=== PATIENT | female | born 1985 | race American Indian/Alaskan Native ===

== ENCOUNTER 2019-01-31 20:32 | Emergency (ER) | payer SELFPAY ==
[2019-02-01] MEDS ORDERED: FUL-GLO OP ONE (00:17)
[2019-02-01] MEDS ORDERED: TETRACAINE 0.5% OS ONE (00:18)
--- NOTE | 2019-02-01 00:20 | Emergency Department Report ---
ED Eye Problem HPI - General Chief complaint: Eye Problems Stated complaint: LEFT EYE PAIN Time Seen by Provider: 02/01/19 00:10 Source: patient Mode of arrival: Ambulatory Limitations: No Limitations - History of Present Illness Initial comments: Pt is a 33 yo female who presents to the ED with c/o left eye pain that began earlier today. She states that she scratched herself with a cardboard box at work. She denies anything getting stuck in the eye but just felt the sensation of the cardboard box scratch the eye. She states she has had clear watery drainage. she does not wear eye contacts. she does wear glasses. PMHx of HTN. denies any allergies to meds. - Related Data Previous Rx's Medication Instructions Recorded Last Taken Type Erythromycin [Erythromycin Ophth 0.5 inch OS QID 5 Days #1 tube 02/01/19 Unknown Rx Oint] ED Review of Systems ROS: Stated complaint: LEFT EYE PAIN Other details as noted in HPI Comment: All other systems reviewed and negative ED Past Medical Hx - Past Medical History Previous Medical History?: Yes Hx Hypertension: Yes - Surgical History Past Surgical History?: Yes Additional Surgical History: , Tubal Ligation - Social History Smoking Status: Never Smoker Substance Use Type: None - Medications Home Medications: Home Medications Medication Instructions Recorded Confirmed Last Taken Type Erythromycin [Erythromycin Ophth 0.5 inch OS QID 5 Days #1 tube 02/01/19 Unknown Rx Oint] ED Physical Exam - General Limitations: No Limitations General appearance: alert, in no apparent distress - Head Head exam: Present: atraumatic, normocephalic - Eye Eye exam: Present: PERRL, EOMI, conjunctival injection (left ), other (clear watery drainage left eye, no visualized foreign body, eye stained with fluorscein and small corneal abrasion visualized on the left eye at the 11 oclock position). Absent: periorbital swelling, periorbital tenderness - ENT ENT exam: Present: mucous membranes moist - Neurological Exam Neurological exam: Present: alert, oriented X3 - Psychiatric Psychiatric exam: Present: normal affect, normal mood - Skin Skin exam: Present: warm, dry, intact ED Course Vital Signs 01/31/19 02/01/19 20:38 01:14 Temperature 98.2 F 98.3 F Pulse Rate 96 H 88 Respiratory 18 18 Rate Blood Pressure 120/82 Blood Pressure 128/74 [Right] O2 Sat by Pulse 96 98 Oximetry ED Medical Decision Making - Medical Decision Making Pt is a 33 yo female who presents to the ED with c/o left eye pain that began earlier today. She states that she scratched herself with a cardboard box at work. She denies anything getting stuck in the eye but just felt the sensation of the cardboard box scratch the eye. She states she has had clear watery drainage. she does not wear eye contacts. she does wear glasses. PMHx of HTN. denies any allergies to meds. on exam clear watery drainage left eye, left conjunctival injection, no visualized foreign body, eye stained with fluorscein and small corneal abrasion visualized on the left eye at the 11 oclock position. pt given erythromycin ointment. discussed to please use ointment as prescribed. follow up with a eye doctor in the next 2-3 days. return to the emergency room for any new or worsening symptoms. Critical care attestation.: If time is entered above; I have spent that time in minutes in the direct care of this critically ill patient, excluding procedure time. ED Disposition Clinical Impression: Corneal abrasion Qualifiers: Encounter type: initial encounter Laterality: left Qualified Code(s): S05.02XA - Injury of conjunctiva and corneal abrasion without foreign body, left eye, initial encounter Disposition: TO HOME OR SELFCARE Is pt being admited?: No Does the pt Need Aspirin: No Condition: Stable Instructions: Corneal Abrasion (ED) Additional Instructions: please use ointment as prescribed. follow up with a eye doctor in the next 2-3 days. return to the emergency room for any new or worsening symptoms. Prescriptions: Erythromycin [Erythromycin Ophth Oint] 0.5 inch OS QID 5 Days #1 tube Referrals: PRIMARY CARE, [Primary Care Provider] - 2-3 Days AP QUINTANILLA MD [Staff Physician] - 2-3 Days NATHAN ZHOU MD [Staff Physician] - 2-3 Days Time of Disposition: 00:50 Print Language: HUNGARIAN
[2019-02-01 01:16] VITALS: BP 128/74
== END 2019-02-01 01:14 | disposition home or self-care (01) ==
LOC: ED 20:32
DX: S05.02XA Injury of conjunctiva and corneal abrasion without foreign body, left eye, initial encounter (principal); I10 Essential (primary) hypertension; Z79.899 Other long term (current) drug therapy; Z98.51 Tubal ligation status; W22.09XA Striking against other stationary object, initial encounter; Y93.89 Activity, other specified; Y92.69 Other specified industrial and construction area as the place of occurrence of the external cause; Y99.8 Other external cause status
CPT/HCPCS: 99283

== ENCOUNTER 2020-07-02 20:47 | Emergency (ER) | payer SELFPAY ==
[2020-07-02 23:38] LABS: Bilirubin,Urine NEG (Negative); Blood,Urine SM (Negative); Color,Urine Yellow (Yellow); Mucus,Urine 2+ /HPF; Protein,Urine <15 mg/dL mg/dL (Negative)
[2020-07-02 23:40] LABS: HCG Qualitative,Urine Negative (Negative)
[2020-07-03] MEDS ORDERED: ONDANSETRON 4 MG ODT TAB PO ONE (00:25)
[2020-07-03] MEDS ORDERED: LIDOCAINE-MPF (1%) 10 MG/1 ML VIAL 5 ML INFILTRATI ONE (00:25)
[2020-07-03] MEDS ORDERED: metroNIDAZOLE 500 MG TAB PO ONE (00:25)
--- NOTE | 2020-07-03 00:53 | Emergency Department Report ---
ED Female HPI - General Chief complaint: Urogenital-Female Stated complaint: VAG DISCHARGE Source: patient Mode of arrival: Ambulatory Limitations: No Limitations - History of Present Illness Initial comments: Patient is a A0 35-year-old -[place] female with no past medical history who presents to the ED with complaint of acute onset persistent vaginal discharge which she describes as greenish-yellow with malodorous smell for the last 5 days. Patient states that the discharge is persistent and causes her to wet undergarments. Patient denies dysuria, urinary frequency and urgency, vaginal bleeding, vaginal pain, abdominal pain, nausea, vomiting, fever, chills, dyspareunia, back pain, chest pain or shortness of breath. MD Complaint: vaginal discharge -: Sudden, days(s) (5) Location: other (vaginal) Radiation: non-radiating Severity: moderate Quality: dull Consistency: constant Improves with: none Worsens with: none Are you Now?: Yes Last Menstrual Period: 06/19/20 EDC: 03/26/21 Associated Symptoms: denies other symptoms, vaginal discharge. denies: vaginal bleeding, abdominal pain, nausea/vomiting, fever/chills, headaches, loss of appetite, dysuria, hematuria, rash, seizure, shortness of breath, syncope, weakness - Related Data Sexually active: Yes : 4 Para: 4 A: 0 Previous Rx's Medication Instructions Recorded Last Taken Type Fluconazole (Nf) [Diflucan TAB] 150 mg PO ONCE #1 tablet 07/03/20 Unknown Rx cephALEXin [Keflex] 500 mg PO Q8HR #30 cap 07/03/20 Unknown Rx metroNIDAZOLE [Flagyl] 500 mg PO Q12HR #14 tab 07/03/20 Unknown Rx Allergies Allergy/AdvReac Type Severity Reaction Status Date / Time No Known Allergies Allergy Unverified 07/02/20 21:05 ED Review of Systems ROS: Stated complaint: VAG DISCHARGE Other details as noted in HPI Constitutional: denies: chills, fever Eyes: denies: eye pain, eye discharge, vision change ENT: denies: ear pain, throat pain Respiratory: denies: cough, shortness of breath, wheezing Cardiovascular: denies: chest pain, palpitations Endocrine: no symptoms reported Gastrointestinal: denies: abdominal pain, nausea, diarrhea Genitourinary: urgency, frequency, discharge. denies: dysuria, abnormal menses, dyspareunia Musculoskeletal: denies: back pain, joint swelling, arthralgia Skin: denies: rash, lesions Neurological: denies: headache, weakness, paresthesias Psychiatric: denies: anxiety, depression Hematological/Lymphatic: denies: easy bleeding, easy bruising ED Past Medical Hx - Past Medical History Previous Medical History?: No - Surgical History Past Surgical History?: No - Medications Home Medications: Home Medications Medication Instructions Recorded Confirmed Last Taken Type Fluconazole (Nf) [Diflucan TAB] 150 mg PO ONCE #1 tablet 07/03/20 Unknown Rx cephALEXin [Keflex] 500 mg PO Q8HR #30 cap 07/03/20 Unknown Rx metroNIDAZOLE [Flagyl] 500 mg PO Q12HR #14 tab 07/03/20 Unknown Rx ED Physical Exam - General Limitations: No Limitations General appearance: alert, in no apparent distress - Head Head exam: Present: atraumatic, normocephalic, normal inspection - Eye Eye exam: Present: normal appearance, PERRL, EOMI Pupils: Present: normal accommodation - ENT ENT exam: Present: normal exam, normal orophraynx, mucous membranes moist, TM's normal bilaterally, normal external ear exam - Neck Neck exam: Present: normal inspection, full ROM - Respiratory Respiratory exam: Present: normal lung sounds bilaterally. Absent: respiratory distress, wheezes, rales, rhonchi, chest wall tenderness, accessory muscle use, decreased breath sounds, prolonged expiratory - Cardiovascular Cardiovascular Exam: Present: regular rate, normal rhythm, normal heart sounds. Absent: systolic murmur, diastolic murmur, rubs, gallop - GI/Abdominal GI/Abdominal exam: Present: soft, normal bowel sounds. Absent: tenderness, guarding, rebound, hyperactive bowel sounds, hypoactive bowel sounds, organomegaly - Bi-manual exam: Present: other (Pelvic exam deferred, patient preferred self- swabing) - Extremities Exam Extremities exam: Present: normal inspection, full ROM, normal capillary refill. Absent: tenderness, pedal edema, joint swelling - Back Exam Back exam: Present: normal inspection, full ROM. Absent: tenderness, CVA tenderness (R), CVA tenderness (L), muscle spasm, paraspinal tenderness, vertebral tenderness - Neurological Exam Neurological exam: Present: alert, oriented X3, CN II-XII intact, normal gait, reflexes normal - Psychiatric Psychiatric exam: Present: normal affect, normal mood - Skin Skin exam: Present: warm, dry, intact, normal color. Absent: rash ED Course Vital Signs 07/02/20 07/03/20 21:03 01:06 Temperature 98.1 F 98.1 F Pulse Rate 89 82 Respiratory 19 18 Rate Blood Pressure 123/79 Blood Pressure 120/82 [Left] O2 Sat by Pulse 96 98 Oximetry ED Medical Decision Making - Medical Decision Making This is a A0 35-year-old -[place] female with no past medical history who presents to the ED with complaint of acute onset persistent vaginal discharge which she describes as greenish-yellow with malodorous smell for the last 5 days. Patient states that the discharge is persistent and causes her to wet undergarments. In the ED, patient is alert and oriented x3 and is not in distress. Urinalysis showed significant urinary tract infection. Wet prep test was positive for Gardnerella vaginalis and trichomonas vaginalis. Patient was treated in the ED for trichomonas vaginalis with Flagyl and also treated for urinary tract infection with Rocephin 1 g intramuscular injection for UTI. Patient was therefore discharged home on antibiotics for bacterial vaginosis and UTI and was advised to follow-up with her [employer] physician in 5 to 7 days for reevaluation. Patient was also advised to ensure that the sexual partner also gets treated for the same at the health department. Patient was advised return to the ED immediately if symptoms get worse. - Differential Diagnosis STD; UTI; ; PID Critical care attestation.: If time is entered above; I have spent that time in minutes in the direct care of this critically ill patient, excluding procedure time. ED Disposition Clinical Impression: Acute urinary tract infection, Trichomonas vaginalis (TV) infection, Bacterial vaginosis Disposition: DC-01 TO HOME OR SELFCARE Is pt being admited?: No Does the pt Need Aspirin: No Condition: Stable Instructions: Urinary Tract Infection, Adult, [id number], Bacterial Vaginosis, [id number], Trichomoniasis, Cervicitis, [id number], Bacterial Vaginosis (ED) Additional Instructions: Take medication with food, drink plenty of fluids and follow-up with your primary care physician in 5 to 7 days for reevaluation. Return to the ED immediately if symptoms get worse. Ensure that your sexual partner also gets treated for the STD and Trichomonas infection at the Health Department. Prescriptions: Fluconazole (Nf) [Diflucan TAB] 150 mg PO ONCE #1 tablet metroNIDAZOLE [Flagyl] 500 mg PO Q12HR #14 tab cephALEXin [Keflex] 500 mg PO Q8HR #30 cap Referrals: [facility] [Provider Group] - 3-5 Days Forms: STI Treatment and Prevention Time of Disposition: 00:53 Print Language: CZECH
[2020-07-03 01:06] VITALS: BP 120/82
== END 2020-07-03 01:06 | disposition home or self-care (01) ==
LOC: MERGE 20:47 → ED 20:47
DX: N39.0 Urinary tract infection, site not specified (principal); A59.01 Trichomonal vulvovaginitis; N76.0 Acute vaginitis; B96.89 Other specified bacterial agents as the cause of diseases classified elsewhere; Z79.899 Other long term (current) drug therapy
CPT/HCPCS: 81001; 81025; 87086; 87210; 96372; 99283; J0696; Q0162

== ENCOUNTER 2021-04-03 08:48 | Emergency (ER) | payer SELFPAY | END 2021-04-03 15:00 | LOC: ED 08:48 ==

== ENCOUNTER 2021-07-16 22:56 | Emergency (ER) | payer SELFPAY ==
[2021-07-16 23:01] VITALS: BP 139/80
[2021-07-17] MEDS ORDERED: HYDROcodone/ACETAMINOPHEN 5-325 MG TAB PO STA (03:19)
--- NOTE | 2021-07-17 04:12 | Cat Scan Report ---
CT HEAD WITHOUT CONTRAST INDICATION / CLINICAL INFORMATION: Headache. TECHNIQUE: All CT scans at this location are performed using CT dose reduction for ALARA by means of automated exposure control. COMPARISON: None available. FINDINGS: HEMORRHAGE: None. EXTRA-AXIAL SPACES: Normal in size and morphology for the patient's age. VENTRICULAR SYSTEM: Normal in size and morphology for the patient's age. Incidental note is made of a cavum septum pellucidum et vergae. CEREBRAL PARENCHYMA: No significant abnormality. No acute territorial infarct. MIDLINE SHIFT / HERNIATION: None. CEREBELLUM / BRAINSTEM: No significant abnormality. ORBITS: Normal as visualized. SOFT TISSUES: No significant abnormality. SKULL: No significant abnormality. PARANASAL SINUSES / MASTOID AIR CELLS: Normal as visualized. ADDITIONAL FINDINGS: None. IMPRESSION: 1. No acute intracranial abnormality. Signer Name: Yordan Riggins MD Signed: 07/17/2021 4:07 AM Workstation Name: [id number]
--- NOTE | 2021-07-17 06:46 | Emergency Department Report ---
ED Headache HPI - General Chief Complaint: Headache Stated Complaint: EYE PAIN/HEADACHE Time Seen by Provider: 07/17/21 02:32 - History of Present Illness Initial Comments: 36-year-old [place] male [facility] emerge department complaining of 1 week history of headache to the right side of a car behind the right associated with some mucus/pus buildup to the of unknown etiology. She reports a dull throbbing pain with no palpable provocative factors. Reports no fever, chills, sweats. No chest pain palpitation. No nausea, no vomiting. Recent Head Trauma: no recent headache/trauma Associated Symptoms: denies: denies symptoms, confusion, fatigue, nausea/vomiting, nasal congestion, nasal drainage, sinus infection, stiff neck Allergies/Adverse Reactions: Allergies No Known Allergies Allergy (Verified 07/16/21 23:01) Home Medications: Ambulatory Orders Amoxicillin [Trimox CAP] 500 mg PO BID #20 capsule 03/28/20 Fluconazole (Nf) [Diflucan TAB] 150 mg PO ONCE #1 tablet 07/03/20 cephALEXin [Keflex] 500 mg PO Q8HR #30 cap 07/03/20 metroNIDAZOLE [Flagyl] 500 mg PO Q12HR #14 tab 07/03/20 Butalb/Acetaminophen/Caffeine [Fioricet 50-300-40 mg CAP] 1 cap PO Q6HR PRN #20 cap 07/17/21 Tobramycin 0.3% [Tobrex] 1 applicatio OD Q8HR #1 tube 07/17/21 ED Review of Systems ROS: Stated complaint: EYE PAIN/HEADACHE Other details as noted in HPI Comment: All other systems reviewed and negative ED Past Medical Hx - Past Medical History Hx Hypertension: Yes - Surgical History Additional Surgical History: , Tubal Ligation - Social History Smoking Status: Never Smoker Substance Use Type: None - Medications Home Medications: Home Medications Medication Instructions Recorded Confirmed Last Taken Type Amoxicillin [Trimox CAP] 500 mg PO BID #20 capsule 03/28/20 Unknown Rx Fluconazole (Nf) [Diflucan TAB] 150 mg PO ONCE #1 tablet 07/03/20 Unknown Rx cephALEXin [Keflex] 500 mg PO Q8HR #30 cap 07/03/20 Unknown Rx metroNIDAZOLE [Flagyl] 500 mg PO Q12HR #14 tab 07/03/20 Unknown Rx Butalb/Acetaminophen/Caffeine 1 cap PO Q6HR PRN #20 cap 07/17/21 Unknown Rx [Fioricet 50-300-40 mg CAP] Tobramycin 0.3% [Tobrex] 1 applicatio OD Q8HR #1 tube 07/17/21 Unknown Rx ED Physical Exam - General Limitations: No Limitations General appearance: alert, in no apparent distress - Head Head exam: Present: atraumatic, normocephalic - Eye Eye exam: Present: normal appearance, PERRL, EOMI, other (She is new cues to the right appears to be in the lacrimal apparatus with palpation. There is no swelling to the, pruritus no tenderness noted.). Absent: nystagmus - ENT ENT exam: Present: mucous membranes moist - Neck Neck exam: Present: normal inspection - Respiratory Respiratory exam: Present: normal lung sounds bilaterally. Absent: respiratory distress - Cardiovascular Cardiovascular Exam: Present: regular rate, normal rhythm. Absent: systolic murmur, diastolic murmur, rubs, gallop - GI/Abdominal GI/Abdominal exam: Present: soft, normal bowel sounds - Extremities Exam Extremities exam: Present: normal inspection - Back Exam Back exam: Present: normal inspection - Neurological Exam Neurological exam: Present: alert, oriented X3 - Psychiatric Psychiatric exam: Present: normal affect, normal mood - Skin Skin exam: Present: warm, dry, intact, normal color. Absent: rash ED Course Vital Signs 07/16/21 22:59 Temperature 98.3 F Pulse Rate 109 H Respiratory 18 Rate Blood Pressure 139/80 [Right] O2 Sat by Pulse 100 Oximetry ED Medical Decision Making - Radiology Data Radiology results: [place] [address] Cat Scan Report Signed Patient: CHRISTINE BUSTOS MR#: [id number] : 1985 Acct:[id number] Age/Sex: 36 / F ADM Date: 07/16/21 Loc: ED Attending Dr: Ordering Physician: AVIVA DORSEY Date of Service: 07/17/21 Procedure(s): CT head/brain wo con Accession Number(s): [id number] cc: AVIVA DORSEY CT HEAD WITHOUT CONTRAST INDICATION / CLINICAL INFORMATION: Headache. TECHNIQUE: All CT scans at this location are performed using CT dose reduction for ALARA by means of automated exposure control. COMPARISON: None available. FINDINGS: HEMORRHAGE: None. EXTRA-AXIAL SPACES: Normal in size and morphology for the patient's age. VENTRICULAR SYSTEM: Normal in size and morphology for the patient's age. Incidental note is made of a cavum septum pellucidum et vergae. CEREBRAL PARENCHYMA: No significant abnormality. No acute territorial infarct. MIDLINE SHIFT / HERNIATION: None. CEREBELLUM / BRAINSTEM: No significant abnormality. ORBITS: Normal as visualized. SOFT TISSUES: No significant abnormality. SKULL: No significant abnormality. PARANASAL SINUSES / MASTOID AIR CELLS: Normal as visualized. ADDITIONAL FINDINGS: None. IMPRESSION: 1. No acute intracranial abnormality. Signer Name: Yordan Riggins MD Signed: 07/17/2021 4:07 AM Workstation Name: [id number] Transcribed By: RT Dictated By: Yordan Riggins MD Electronically Authenticated By: Yordan Riggins MD Signed Date/Time: 07/17/21406 DD/ 1 TD/TT: - Medical Decision Making This patient presents with a headache most consistent with nonemergent headache. Differential diagnosis includes migraine versus tension type headache. No headache red flags. Neurologic exam without evidence of meningismus, focal neurologic findings.Based on the patient's history and physical there is very low clinical suspicion for significant intracranial pathology. The headache was NOT sudden onset, NOT maximal at onset, there are NO neurologic findings, the patient does NOT have a fever, the patient does NOT have any jaw claudication, the patient does NOT endorse a clotting disorder, patient DENIES any trauma or eye pain and the headache is NOT associated with dizziness or ataxia. Presentation not consistent with acute intracranial bleed to include SAH (lack of risk factors, headache history). Presentation not consistent with acute REGISTERED NURSE NURSERY infection to include meningitis or brain abscess, Temporal arteritis unlikely, as is acute angle closure glaucoma given history and physical findings. Presentation not consistent with other acute, emergent causes of headache at this time. Plan to treat symptomatically with pain medication. No indication for imaging/LP at this time. Plan: pain medication, CT brain normal, serial reassessment Critical care attestation.: If time is entered above; I have spent that time in minutes in the direct care of this critically ill patient, excluding procedure time. ED Disposition Clinical Impression: Headache Disposition: HOME / SELF CARE / HOMELESS Is pt being admited?: No Does the pt Need Aspirin: No Condition: Stable Instructions: General Headache Without Cause Prescriptions: Butalb/Acetaminophen/Caffeine [Fioricet 50-300-40 mg CAP] 1 cap PO Q6HR PRN #20 cap PRN Reason: Headache Tobramycin 0.3% [Tobrex] 1 applicatio OD Q8HR #1 tube Referrals: PRIMARY CARE, [Primary Care Provider] - 3-5 Days [facility] [Provider Group] - 3-5 Days
== END 2021-07-17 07:35 | disposition home or self-care (01) ==
LOC: ED 22:56
DX: R51.9 Headache, unspecified (principal); I10 Essential (primary) hypertension
CPT/HCPCS: 70450; 99283